=== PATIENT | male | born 1995 | race Caucasian/White ===

== ENCOUNTER 2021-09-26 21:50 | Emergency (ER) | payer SELFPAY ==
[2021-09-27 00:17] LABS: CORONAVIRUS 2019 SARS-COV-2 NEGATIVE (NEGATIVE); INFLUENZA A NAA NEGATIVE (NEGATIVE)
[2021-09-27] MEDS ORDERED: ONDANSETRON ODT4 MG PO (00:51)
[2021-09-27] MEDS ORDERED: AMOX TR-K CLV1 EAC4 PO (00:51)
== END 2021-09-27 00:57 | disposition home or self-care (01) ==
LOC: FER 21:50
PROVIDERS: Emergency Medicine
DX: R11.2 Nausea with vomiting, unspecified (principal); R19.7 Diarrhea, unspecified; J45.909 Unspecified asthma, uncomplicated; F17.200 Nicotine dependence, unspecified, uncomplicated; Z20.822 Contact with and (suspected) exposure to COVID-19
CPT/HCPCS: 99284; U0002

== ENCOUNTER 2021-10-16 18:04 | Emergency (ER) | payer SELFPAY ==
[~2021-10-16 18:04] MED LIST: AMOX TR-K CLV1 EAC4 PO; ONDANSETRON ODT4 MG PO
[2021-10-16] MEDS ORDERED: AMOX TR-K CLV1 EAC4 PO (18:33)
[2021-10-16] MEDS ORDERED: ATARAX25 MG PO (18:56)
== END 2021-10-16 19:05 | disposition home or self-care (01) ==
LOC: FER 18:04
DX: S61.217A Laceration without foreign body of left little finger without damage to nail, initial encounter (principal); F17.200 Nicotine dependence, unspecified, uncomplicated; Z23 Encounter for immunization; W29.3XXA Contact with powered garden and outdoor hand tools and machinery, initial encounter; Y92.89 Other specified places as the place of occurrence of the external cause; Y99.0 Civilian activity done for income or pay
CPT/HCPCS: 73140; 90471; 90715

== ENCOUNTER 2021-12-15 10:37 | Emergency (ER) | payer SELFPAY ==
[~2021-12-15] VITALS: Ht 177.8 cm; Wt 61.2 kg
[~2021-12-15 10:37] MED LIST changes: +ATARAX25 MG PO
[2021-12-15 11:42] LABS: BASOPHIL 0.4 % (0-2); EOSINOPHIL 0.9 % (0-5); HCT 42.5 % (42.0-52.0); LYMPHOCYTE 12.7 % (15-48); MCH 28.2 pg (25.0-31.0); MCHC 32.9 g/dL (32.0-36.0); MCV 85.7 fL (78.0-100.0); MONOCYTE 3.4 % (0-12); MPV 11.2 fL (6.0-9.5); NEUTROPHIL 82.2 % (41-80); NRBC 0; PLT 238 K/uL (150-400); RBC 4.96 M/uL (4.70-6.00); RDW 13.1 % (11.5-14.0); WBC 17.2 K/uL (4.0-10.5)
[2021-12-15 12:05] LABS: ALBUMIN 4.1 g/dL (3.4-5.0); BILIRUBIN - TOTAL 0.2 mg/dL (0.2-1.0); BUN/CREAT RATIO (CALC) 9.4 RATIO; CREATININE 0.85 mg/dL (0.67-1.17); GLOBULIN (CALCULATION) 2.9 g/dL; MAGNESIUM 1.8 mg/dL (1.8-2.4); POTASSIUM 4.8 mmol/L (3.5-5.1)
[2021-12-15 12:34] LABS: LACTIC ACID 1.4 mmol/L (0.4-1.9)
[2021-12-15 13:01] LABS: BILIRUBIN NEGATIVE (NEGATIVE); BLOOD NEGATIVE Ery/uL (NEGATIVE); CLARITY CLEAR (CLEAR); COLOR YELLOW (YELLOW); GLUCOSE (U) NORMAL (NORMAL); LEUKOCYTES NEGATIVE Leu/uL (NEGATIVE); NITRITE NEGATIVE (NEGATIVE); PROTEIN NEGATIVE (NEGATIVE); SPECIFIC GRAVITY 1.025 (1.001-1.030); UROBILINOGEN 0.2 mg/dL (0.2-1.0)
[2021-12-15 13:05] LABS: AMPHETAMINES NEGATIVE (NEGATIVE); BARBITURATES NEGATIVE (NEGATIVE); ECSTASY (MDMA) NEGATIVE (NEGATIVE); MARIJUANA (THC) POSITIVE (NEGATIVE); METHADONE NEGATIVE (NEGATIVE); OPIATES NEGATIVE (NEGATIVE); OXYCODONE NEGATIVE (NEGATIVE)
[2021-12-15 13:08] LABS: MUCOUS TRACE; URINARY RBC RARE
[2021-12-15 13:09] LABS: SQUAMOUS EPITHELIAL CELLS RARE
[2021-12-15] MEDS ORDERED: ONDANSETRON HCL4 MG PO (13:47)
== END 2021-12-15 14:00 | disposition home or self-care (01) ==
LOC: FER 10:37
PROVIDERS: Emergency Medicine; Nurse Practitioner Family
DX: K52.9 Noninfective gastroenteritis and colitis, unspecified (principal); B34.9 Viral infection, unspecified; J45.909 Unspecified asthma, uncomplicated; F17.210 Nicotine dependence, cigarettes, uncomplicated; Z28.310 Unvaccinated for COVID-19
CPT/HCPCS: 36415; 80053; 80305; 81001; 83605; 83690; 83735; 85025; J2405; J7030; Q9967

== ENCOUNTER 2022-04-12 10:20 | Emergency (ER) | payer SELFPAY ==
[~2022-04-12 10:20] MED LIST changes: +ONDANSETRON HCL4 MG PO
== END 2022-04-12 17:20 | disposition left against medical advice (07) ==
LOC: FER 10:20
DX: R11.2 Nausea with vomiting, unspecified (principal); R19.7 Diarrhea, unspecified; Z53.21 Procedure and treatment not carried out due to patient leaving prior to being seen by health care provider; Z28.310 Unvaccinated for COVID-19